=== PATIENT | female | born 1945 | race Caucasian/White ===

== ENCOUNTER → 2017-02-14 12:40 | Outpatient (CLI) | payer MEDICARE, OTHER ==
[2014-05-24 07:04] VITALS: BMI 22.0
[~2017-02-14 12:40] MED LIST: ASPIRIN325 MG PO; CATAPRES0.2 MG PO; GARLIC1 CAP PO; GLUCOSAMINE & C1 CAP PO; HYDROCHLOROTH12.5 M1 PO; MOBIC7.5 MG PO; NORCO 10/325 TA1 TA1 PO; PLAVIX75 MG PO; VITAMIN B-121000 MC3 PO; VITAMIN C1000 MG PO; VITAMIN D2000 UNIT PO; VITAMIN D31000 UNIT PO
== END | disposition home or self-care (01) ==
LOC: D.US 12:40
DX: I65.23 Occlusion and stenosis of bilateral carotid arteries (principal)

== ENCOUNTER → 2017-02-25 14:30 | Outpatient (CLI) | payer MEDICARE, OTHER ==
[2014-05-24 07:04] VITALS: BMI 22.0
== END | disposition home or self-care (01) ==
LOC: D.CT 14:30
DX: I65.23 Occlusion and stenosis of bilateral carotid arteries (principal)

== ENCOUNTER → 2017-07-15 09:57 | Outpatient (CLI) | payer MEDICARE, OTHER ==
[2014-05-24 07:04] VITALS: BMI 22.0
== END | disposition home or self-care (01) ==
LOC: D.CT 09:57
DX: I65.23 Occlusion and stenosis of bilateral carotid arteries (principal)

== ENCOUNTER → 2017-07-20 16:35 | Outpatient (CLI) | payer MEDICARE, OTHER ==
[2014-05-24 07:04] VITALS: BMI 22.0
== END | disposition home or self-care (01) ==
LOC: D.MAMMO 14:00
DX: N63 Unspecified lump in breast (principal)

== ENCOUNTER 2017-08-05 07:01 | Inpatient (IN) | payer MEDICARE, OTHER ==
--- NOTE | 2017-07-30 12:51 | HP ---
PATIENT: STEPHANIE OCASOI MEDICAL RECORD: [id number] ACCOUNT: [id number] LOCATION:[facility] : 47 ADMISSION DATE: 08/05/17 HISTORY AND PHYSICAL EXAMINATION NameSTEPHANIE OCASIO (71yo, F) ID# [id number]. Date/Time07/28/2017 01:[id number] 1945Servic Dept.[facility] ClinicProviderEDJENI CHAPA MDInsuranceMed Primary: [place]) Insurance # : [id number] Referring Provider Name : FARIHA JESUS Med Secondary: [place] () Insurance # : [id number] Med : FOR LIFE ( - MEDICARE SUPPLEMENT) Insurance # : [id number] Prescription: ESI1 - Member is eligible. Chief Complaint Carotid stenosis Followup: Intracranial aneurysm Followup: Carotid artery occlusion S/P RCEA 06/30/11 S/P L SUBCLAVIAN STENT W IR, FOLLOWING 4 MONTH F/U, DISCUSS FINDINGS CTA CAROTID DONE 07/15/17 Patient's Care Team Referring Provider (): FARIHA JESUS: [facility] [phone], , Patient's Pharmacies [facility] ([facility]): [address] [place] [address] [place] [phone], , Vitals BP:144/78 sitting R arm 07/28/2017 01:46 pmBP Cuff Size:adult 07/28/2017 01:46 pmHR:96,REG 07/28/2017 01:48 pmHt:5 ft 2 in 07/28/2017 01:41 pmWt:112 lbs 07/28/2017 01:48 pmNotes:HERE FOR TEST RESULTS. 07/28/2017 01:48 pmBMI:20.5 07/28/2017 01:48 pmAllergies Reviewed Allergies SULFA (SULFONAMIDE ANTIBIOTICS)Medications Reviewed Medications amoxicillin 500 mg-potassium clavulanate 125 mg nofqxd50/22/16 filledMEDCOaspirin 325 mg tablet Take 1 tablet(s) every day by oral route.07/20/11 enteredKat Wilsonazithromycin 250 mg /30/17 filledMEDCObenzonatate 100 mg owmmenn48/22/16 filledMEDCOcephALEXin 500 mg capsule TK ONE C PO TID TAT.10/09/16 filledsurescriptschlorhexidine gluconate 0.12 % mouthwash RINSE DIRECTED FOR 30 SECONDS TWICE DAILY THANK YOU11/24/15 filledsurescriptscloNIDine HCl 0.2 mg tablet Take 1 tablet(s) twice a day by oral route.06/11/17 filledMEDCOclopidogrel 75 mg tablet 1 tablet daily05/27/17 filledMEDCOfamotidine 20 mg oqrnix33/12/17 filledMEDCOFish Oil 1,000 mg capsule two caps by mouth daily07/20/11 enteredKathy WilsonhydroCHLOROthiazide 12.5 mg iabrket12/10/17 filledMEDCOhydroCHLOROthiazide 25 mg tablet Take 1 tablet(s) every day by oral route.11/25/11 [facility] BrownLipitor 80 mg tablet Take 1 tablet(s) every day by oral route in the evening.07/20/11 [facility] Wilsonloratadine 10 mg pcylch89/29/17 filledMEDCOmethylPREDNISolone 4 mg tablets HISTORY AND PHYSICAL [id number] STEPHANIE OCASIO in a dose pack08/19/16 filledMEDCOpantoprazole 40 mg tablet,delayed iwhicwr95/20/17 filledMEDCOProblems Reviewed Problems Hyperlipidemia Essential hypertension Carotid artery occlusion Intracranial aneurysm Arteriosclerotic vascular disease Family History Discussed Family History Mother- Cerebrovascular accident ( age: 72) - previously recorded as StrokeSocial History Discussed Social History Cardiology Smoking Status: Former smoker (Notes: QUIT 2 YRS AGO - SMOKED 1PPD X20YRS) High blood pressure: Y Alcohol intake: Occasional (Notes: 1-2 DAILY) Marital status: Surgical History Reviewed Surgical History Other - 05/24/2014 - Left subclavian stent Carotid Endarterectomy - 06/30/2011 - RCEA MATERIAL EXPEDITOR History (not configured) Obstetric History Obstetric History not reviewed (last reviewed 02/17/2017) Past Medical History Discussed Past Medical History Carotid Stenosis: Y High Blood Pressure: Y Documents for Discussion N/A Screening None recorded. HPI Cerebral Vascular Disease Reported by patient. Associated Symptoms: no headache; no nausea; no vomiting; no tinnitus; no difficulty speaking; no lethargy; no fever; no chills; no palpitations; no syncope; no loss of consciousness progression of carotid artery disease ROS Patient reports muscle aches but reports no muscle w eakness, no arthralgias/joint pain, no back pain, and no swelling in the extremities. She reports no fever, no night sweats, no significant weight gain, no significant weight loss, and no exercise intolerance. She reports no dry eyes, no irritation, and n o vision change. She reports no difficulty hearing and no ear pain. She reports no frequent nosebleeds and no nose/sinus problems. She reports no sore throat, no bleeding gums, no snoring, no dry mouth, no mouth ulcers, no oral abnormalities, and no teeth p roblems. She reports no chest pain, no arm pain on exertion, no shortness of breath when walking, no shortness of breath when lying down, no palpitations, and no known HISTORY AND PHYSICAL [id number] NINFASTEPHANIE K heart murmur. She reports no cough, no wheezing, no shortness of breath, and no coughin g up blood. She reports no abdominal pain, no vomiting, normal appetite, no diarrhea, not vomiting blood, no nausea, and no constipation. She reports no incontinence, no difficulty urinating, no hematuria, and no increased frequency. She reports no abnorma l mole, no jaundice, and no rashes. She reports no loss of consciousness, no weakness, no numbness, no seizures, no dizziness, and no headaches. She reports no depression, no sleep disturbances, feeling safe in relationship, and no alcohol abuse. She repor ts no fatigue. She reports no swollen glands and no bruising. She reports no runny nose, no sinus pressure, no itching, no hives, and no frequent sneezing. ROS as noted in the HPI Physical Exam Patient is a 71-year-old female. Constitutional: General Appearance well nourished and developed and healthy-appearing. Level of Distress NAD. Ambulation ambulating normally. Ears, Nose, Throat: Ears grossly normal hearing. Nose no external nose lesion. Lips, Teeth, and Gums no mouth or lip ulcers. Oropharynx: mois t mucous membranes. Cardiovascular: Apical Impulse not displaced or no thrill. Heart Auscultation normal s1 and s2; no murmurs, rubs, or gallops; and RRR. Arterial Pulses no abdominal aorta bruits, femoral bruits, or popliteal bruits and 2+ bilateral, car otid 2+ bilateral, femoral 2+ bilateral, popliteal 2+ bilateral, and dorsalis pedis 2+ bilateral; BILAT SUBCLAVIAN. Edema no edema or varicosities. Lungs: Repiratory Effort no dyspnea. Percussion no hyperresonance or dullness or flatness. Auscultation no wheezing, rhonchi, or rales / crackles and breathing sounds normal, good air movement, and CTA except as noted. Abdomen: Bowl Sounds normal. Inspection and Palpation no tenderness, guarding, masses, or rebound tenderness and soft and non-distended. Liver non-tender and no hepatomegaly. Spleen non-tender and no splenomegaly. Hernia none palpable. Musculoskeletal System: Gait And Stance normal gait and stance. Digits and Nails normal nails and no cyanosis. Neurologic: Cranial Nerves grossly intact. Reflexes DTRs 2+ bilaterally throughout. Sensation grossly intact. Lymph Nodes: Lymph Nodes no cervical LAD, supraclavicular LAD, axillary LAD, or inguinal LAD. Eyes: Lids and Conjunctivae no discharge or pallor and non-injected. Pupils PERRLA. Cornea grossly intact. EOM EOMI. Lens clear. Sclera non-icteric. Neck: Neck no masses or enlarged lymph nodes and supple, trachea midline, and carotid bruits (soft bilat). Thyroid no enlargement or nodules and non-tender. Skin: Inspection and Palpation no rash, lesions, ulcers, jaundice, or abnormal nevi. Assessment / Plan progression of the left carotid artery disease 1. Intracranial aneurysm I67.1: Cerebral aneurysm, nonruptured HISTORY AND PHYSICAL [id number] STEPHANIE OCASIO 2. Carotid artery occlusion I65.23: Occlusion and stenosis of bilateral carotid arteries 3. Arteriosclerotic vascular disease I70.90: Unspecified atherosclerosis Discussion Notes she has had progression of left carotid artery disease with ruptured plaque on the left. She now has greater than 70% stenosis on the left. I have discussed her dis ease process with her in detail as well as the alternative of treatment. We discussed left carotid endarterectomy including the expected benefits and risks which include bleeding, infection, stroke, , and the imponderables. She understands all of the above and wishes to proceed with planned surgery. CARLOS EDUARDO CHAPA MD at 1251 CC: [id number] DICTATION DATE: 07/28/15 1315 POWDERED SUGAR SUPERVISOR: WILLY 07/29/17 1145 [address] [place] [id number] [place] [address]
[2017-08-04 15:57] LABS: HEMATOCRIT 41.5 % (36.0-48.0); HEMOGLOBIN 14.2 g/dL (12-16); MCH 31.9 pg (26.0-34.0); MCHC 34.2 g/dL (31.0-37.0); MCV 93.3 fL (80.0-100.0); RBC 4.45 10x6/uL (4.00-5.40); RDW 12.4 % (11.5-14.5); WBC 7.1 10x3/uL (4.8-10.8)
[2017-08-04 16:09] LABS: APTT 23.2 SECONDS (22.8-39.4); INR 0.93 (0.85-1.17); PROTIME 12.3 SECONDS (11.6-15.0)
[2017-08-04 16:21] LABS: ALBUMIN 4.1 g/dL (3.4-5.0); ALKALINE PHOSPHATASE 81 U/L (46-116); ALT (SGPT) 21 U/L (10-68); BILIRUBIN - TOTAL 0.72 mg/dL (0.2-1.3); CALC OSMOLALITY 272 mosm/kg (275-300); CARBON DIOXIDE 27.5 mmol/L (21.0-32.0); CHLORIDE - SERUM 97 mmol/L (98-107); CREATININE - SERUM 0.8 mg/dL (0.6-1.3); GLUCOSE 96 mg/dL (74-106); POTASSIUM - SERUM 3.6 mmol/L (3.5-5.1); PROTEIN - SERUM 7.5 g/dL (6.4-8.2); SODIUM 136 mmol/L (136-145); UREA NITROGEN 14 mg/dL (7-18); eGFR NON AFRICAN AMERICAN 75 mL/min (90-120)
[2017-08-04 16:24] LABS: APPEARANCE CLEAR (CLEAR); BILIRUBIN NEGATIVE (NEGATIVE); COLOR YELLOW (YELLOW); GLUCOSE NEGATIVE (NEGATIVE); KETONE NEGATIVE (NEGATIVE); LEUKOCYTE ESTERASE NEGATIVE (NEGATIVE); NITRITE NEGATIVE (NEGATIVE); PROTEIN NEGATIVE (NEGATIVE); SPECIFIC GRAVITY 1.005 (1.005-1.020); UROBILINOGEN NORMAL (NORMAL)
[~2017-08-05] VITALS: Ht 154.9 cm; Wt 53.1 kg
[2017-08-05] VITALS (33 sets, daily range): BP systolic 97–145; BP diastolic 47–81; Ht 154.9 cm; Wt 53.1 kg
[~2017-08-05 07:01] MED LIST changes: +CLARITIN 10 MG10 MG PO; +HCTZ; +PEPCID20 MG PO
--- NOTE | 2017-08-05 10:51 | NUR ---
SKIN TEAR WITH REMOVAL OF IOBAN DRAPE TO LEFT SHOULDER AREA
--- NOTE | 2017-08-05 11:38 | NUR ---
RECEIVED PT TO ROOM CV07 VIA BED OR STAFF AT BEDSIDE. AROUSES TO VOICE. RODRÍGUEZ PITTS REMOVING ALL TAPE POSSIBLE. VSS.
--- NOTE | 2017-08-05 13:33 | NUR ---
SHANA PITTS AT BEDSIDE SPEAKING WITH PT.
--- NOTE | 2017-08-05 15:50 | NUR ---
WATER, CHICKEN BROTH AND LEMON TABLE MOUNTAIN SODA PROVIDED PER REQUEST. PT EXTREMELY THANKFUL STATING "THANK YOU SO VERY MUCH FOR EVERYTHING! I DON'T REMEMBER IT BEING THIS HARD." PT REASSURED. NO CURRENT NEEDS.
--- NOTE | 2017-08-05 18:47 | NUR ---
SHAMPOO CAP PROVIDED. PT ASSISTED WITH COMBING HAIR.
--- NOTE | 2017-08-05 19:15 | NUR ---
SHIFT ASSESSMENT COMPLETE, PATIENT SITTING UP IN BED WATCHING TV. ALERT AND ORIENTED X4. FOLLOWS DIRECTIONS WELL. SMILE EQUAL. BILATERAL HARD ROCK DRILL OPERATOR STRENGTH. INCISION ON LEFT NECK IS CDI. MINIAMAL SWELLING AND BRUISING. AREAS MARKED TO KEEP TRACK. SKIN TEAR ON UPPER LEFT CHEST. DRESSINGS CDI. CATHERINE DRAIN TO UPPER LEFT CHEST. COMPRESSED, MINIMAL BLOODY DRAINAGE NOTED. NO TRACHEAL DEVIATION SEEN. CRACKLES HEARD WITH LUNG SOUNDS, DIMINISHED AT BASES. S1S2, NSR, RITCHIE DRAINING OLIVA COLORED URINE TO GRAVITY, NO KINKS. PERIPHERAL PULSES +2, A-LINE IN R RADIAL WRIST, WAVEFORM GOOD, EXTREMITY WARM AND PINK. WRIST PROTECTOR IN PLACE. DENIES NEED AT THIS TIME, VSS, TITRATING NITRO PER BLOOD PRESSURE PER ORDER. SEE IV DRIPS. WILL MONITOR.
--- NOTE | 2017-08-05 20:15 | NUR ---
CHICKEN BROTH AND FRESH WATER GIVEN PER REQUESTS. PATIENT VERY APPRECIATIVE. VSS, WILL MONITOR.
--- NOTE | 2017-08-05 20:20 | NUR ---
PATIENT REQUESTS MEDS EARLY. STATES SHE IS "WORE OUT AND READY FOR BED" MEDS GIVEN.
--- NOTE | 2017-08-05 21:00 | NUR ---
NO VISITORS AT THIS TIME.
--- NOTE | 2017-08-05 23:00 | NUR ---
REASSESSMENT COMPLETE, NO ACUTE CHANGES. NO TRACHEAL DEVIATION NOTED, SWELLING HAS NOT INCREASED. CATHERINE DRAIN COMPRESSED. A&O X4, SENIOR SOFTWARE SYSTEMS ENGINEER STRENGTH 5/5 AND BILATERAL. WILL MONITOR.
[2017-08-06] VITALS (82 sets, daily range): BP systolic 113–146; BP diastolic 47–83
--- NOTE | 2017-08-06 01:00 | NUR ---
PATIENT RESTING WELL. DENIES NEED AT THIS TIME. A&O X4, NO DEVIATIONS NOTED. NO INCREASED SWELLING TO NECK. CATHERINE DRAIN COMPRESSED. WILL MONITOR.
--- NOTE | 2017-08-06 03:00 | NUR ---
REASSESSMENT COMPLETE, NO ACUTE CHANGES, NEUROLOGICALLY INTACT, NO INCREASE OF SWELLING OF NECK. VSS. WILL MONITOR.
--- NOTE | 2017-08-06 05:00 | NUR ---
TITRATING DRIPS FOR DESIRED BP PER ORDER. SEE IV DRIPS.
--- NOTE | 2017-08-06 07:00 | NUR ---
ASSESSMENT COMPLETE PER FLOW SHEET.. SITTING UP IN BED, VITAL SIGNS STABLE. NO C/O PAIN AT THIS TIME.
--- NOTE | 2017-08-06 09:05 | NUR ---
AM MEDICATIONS GIVEN PER MAR WITHOUT PROBLEM. STATES PAIN IS 2/10 AND REQUESTED TRAMADOL. SEE MAR.
--- NOTE | 2017-08-06 10:50 | NUR ---
DR. CHAPA AT BEDSIDE. CATHERINE DRAIN REMOVED AND DRESSING PLACED TO SITE. REC'D ORDERS TO REMOVE ART LINE AND RITCHIE CATHETER, AND TO SALINE LOCK CVL AFTER GTTS ARE WEANED OFF.
--- NOTE | 2017-08-06 11:25 | NUR ---
RIGHT RADIAL ART LINE D/C'D WITH CATHETER INTACT, DRESSING TO SITE.
--- NOTE | 2017-08-06 11:55 | OP ---
PATIENT NAME: STEPHANIE OCASIO MEDICAL RECORD: [id number] :47 [facility] ADMISSION DATE:08/05/17 SURGEON: FRANK CHAPA MD DATE OF OPERATION: 08/05/2017 SURGEON: Frank Chapa MD. ANESTHESIA: General endotracheal, Dr. Jefferson. OPERATIONS PERFORMED: 1. Left carotid endarterectomy with patch angioplasty. 2. Repair of skin tear. PREOPERATIVE DIAGNOSIS: Severe left internal carotid artery stenosis. POSTOPERATIVE DIAGNOSIS: Severe left internal carotid artery stenosis. INDICATION FOR OPERATION: Severe left internal carotid artery stenosis. FINDINGS AT OPERATION: Severe left internal carotid artery stenosis. There were no EEG changes with clamping or unclamping of the carotid artery. After the case, the drapes were being removed by the scrub techs and the patient developed a skin tear in the left supraclavicular fossa. ESTIMATED BLOOD LOSS: Less than 100 mL. DESCRIPTION OF PROCEDURE: After informed consent, adequate preoperative medication and evaluation, the patient was brought to the operating room, placed on the table in the supine position. After induction of general anesthesia and application of appropriate monitoring devices, the left neck and chest were prepped and draped in a sterile field utilizing Betadine scrub, alcohol, and Betadine solution. A Betadine-impregnated drape was also used. An oblique incision was made in the skin crease. Dissection was carried down the fascia. Hemostasis was maintained with electrocautery. Facial vein was identified and divided. Utilizing sharp dissection, the common carotid, internal and external carotid arteries were dissected free from surrounding structures, protecting the neurological structures. The patient was given a calculated dose of heparin. After 3 minutes, clamps were applied. After 2 minutes, no EEG changes. The arteriotomy was made and extended with Austin scissors. Artery underwent endarterectomy sharply. Artery underwent extensive debridement and irrigation. Utilizing a CorMatrix vascular patch and running 7-0 Prolene suture, the arteriotomy was closed with a patch angioplasty technique. All maneuvers to remove trapped air were performed. The clamps were removed sequentially. There were no EEG changes. The patient was given a calculated dose of protamine to reverse the heparin. Hemostasis was achieved. The wound was irrigated with copious amounts of antibiotic solution and normal saline. A #7 Berhane-Rihc drain was left in the depth of wound and brought through the base of the neck. Neck was again irrigated. Instrument count and sponge count were correct times 2. Neck was closed in layers utilizing 3-0 Vicryl on the platysma, 5-0 subcuticular Monocryl on the skin. Sterile dressing was applied. I left the room to go to the CV recovery room for postoperative orders, etc.. The scrub techs taking the drape off of the patient, developed a skin tear in the left supraclavicular space and the skin had to be laid back into place and sutured with 4-0 nylon suture. A Xeroform gauze was placed over the area and a fluffy dressing placed over. The Berhane-Rich drain area was then draped in a OPERATIVE REPORT [id number] STEPHANIE OCASIO separate field. The patient tolerated the procedure well and was transferred to the CV ICU in stable condition. TRANSINT:[id number] Voice Confirmation ID: [id number] DOCUMENT ID: [id number] FRANK CHAPA MD at 1155 CC: [id number] DICTATION DATE: 08/05/17 1125 PLATFORM BEATER: 08/05/17 1338 ADM IN [facility] [address] [place] [address]
--- NOTE | 2017-08-06 13:50 | NUR ---
RITCHIE CATHETER D/C'D PER ORDERS WITH NO PROBLEMS.
--- NOTE | 2017-08-06 14:07 | NUR ---
TASHA WITH P.T. AT BEDSIDE. ASSISTED PT TO MOVE FROM BED TO CHAIR.
--- NOTE | 2017-08-06 17:26 | NUR ---
UP TO RESTROOM TO VOID WITH LITTLE ASSISTANCE. BACK TO CHAIR.
--- NOTE | 2017-08-06 19:05 | NUR ---
SHIFT ASSESSMENT COMPLETE, PATIENT RESTING IN BED, STATES SHE HAS HAD A GOOD DAY, BUT IS WORE OUT NOW. VSS, TITRATING CLEVIPREX FOR BP. A&O X4, WILL CONTINUE TO ASSESS. SEE FLOWSHEET FOR MORE DETAILS.
--- NOTE | 2017-08-06 20:00 | NUR ---
UP TO BATHROOM, GATE STEADY.
--- NOTE | 2017-08-06 20:15 | NUR ---
PATIENT REQUESTED NIGHT MEDS EARLY.
--- NOTE | 2017-08-06 21:30 | NUR ---
UP TO BATHROOM, STEADY GATE. RETURNED TO BED AND PLACED ON MONITOR.
--- NOTE | 2017-08-06 22:45 | NUR ---
UP TO BATHROOM WITH ASSISST. STEADY GATE.
--- NOTE | 2017-08-06 23:00 | NUR ---
REASSESSMENT COMPLETE, NO ACUTE CHANGES. PATIENT REACHED 1000 ON IS, VSS. WILL KENRICK.
[2017-08-07] VITALS (58 sets, daily range): BP systolic 99–169; BP diastolic 56–96
--- NOTE | 2017-08-07 00:15 | NUR ---
PATIENT TO TO BATHROOM, VOIDED CLEAR YELLOW URINE. BACK TO BED WITH ASSISST. TOLERATED WELL.
--- NOTE | 2017-08-07 01:15 | NUR ---
UP TO BATHROOM WITH ASSISST. STEADY GATE.
--- NOTE | 2017-08-07 02:34 | NUR ---
SUPERVISOR HOUSECLEANER LIGHT TO GO TO BATHROOM. UP WITH MINIMAL ASSISST. STEADY GATE.
--- NOTE | 2017-08-07 03:00 | NUR ---
REASSESSMENT COMPLETE, NO ACUTE CHANGES. A&OX4, VSS, DENIES NEED.
--- NOTE | 2017-08-07 04:40 | NUR ---
UP TO BEDSIDE COMMODE, GATE STEADY. TOLERATED WELL.
--- NOTE | 2017-08-07 05:45 | NUR ---
RESTING WELL, VSS. WILL MONITOR.
--- NOTE | 2017-08-07 16:34 | NUR ---
CLEVIPREX RESTARTED FOR BP 171/102. TITRATED UP TO 5 MG/MIN. PATIENT STATES SHE DID SLEEP WELL LAST NIGHT. TURNED LIGHTS OFF AND ALLOWED HER TO REST THIS AM. STATES SHE BECOMES NAUSED EASILY. ZOFRAN GIVEN PRIOR TO MIRALAX PATEINT STATES IT HELPED ALOT. COMPLETED BED BATH GIVEN, HAIR WASHED. LINEN CHANGED. UP TO BATHROOM 7 X SO FAR. NO BM TODAY. RIGHT SUBCLAVIAN DOUBLE LUMEN FLUSHES WITHOUT DIFFICULTY. OLD DARK RED DRAINAGE NOTED AROUND SITE. DRESSING LEFT NECK AND SHOULDER INTACT WITH ONLY OLD DARK RED DRAINAGE. HAND COINING PRESS OPERATOR EQUAL BILATERALLY. DR. CHAPA DOES NOT WANT THE CLEVIPREX TURNED BACK ON. DC'D . BOTH PORTS OF CENTRAL LINE FLUSHED. GAIT IMPROVING. AMBULATED IN BABIN WITH PT TWICE. WINE SERVED WITH SUPER DENIES PAIN
--- NOTE | 2017-08-07 19:30 | NUR ---
REPORT RECIEVED. ASSESSMENT COMPLETED. SEE FLOW SHEET FOR FURTHER DETAILS. PT STATED SHE HAD A GREAT DAY. POSITIONED FOR COMFORT WILL CONTINUE TO MONITOR.
--- NOTE | 2017-08-07 21:00 | NUR ---
NO VISITORS AT THIS TIME. PT STATES SHES READY TO GO TO BED. ASSISTED HER TO THE RESTROOM, AND TO BRUSHED HER TEETH THEN BACK TO BED. POSITIONED FOR COMFORT, WILL CONTINUE TO MONITOR.
--- NOTE | 2017-08-07 23:00 | NUR ---
REASSESSMENT COMPLETED. NO ACUTE CHANGES AT THIS TIME. POSITIONED PT FOR COMFORT, WILL CONTINUE TO MONITOR.
[2017-08-08] VITALS (24 sets, daily range): BP systolic 106–172; BP diastolic 58–90
--- NOTE | 2017-08-08 01:00 | NUR ---
PT SLEEPING WITH EYES CLOSED.VVS. WILL CONTINUE TO MONITOR.
--- NOTE | 2017-08-08 02:26 | NUR ---
PT HR WENT TO 48 WENT AND WOKE HER UP AND IT CAME BACK TO 62. ASSISITED PT TO THE REST ROOM AND BACK TO BED.
--- NOTE | 2017-08-08 03:00 | NUR ---
REASSESSMENT COMPLETED. NO CHANGES AT THIS TIME. POSITIONED FOR COMFORT WILL CONTINUE MONITOR.
--- NOTE | 2017-08-08 05:32 | NUR ---
PT AWAKE. ASSISTED TO THE RESTROOM AND BACK TO BED. PT REQUESTED A CUP OF COFFEE AND A CUP OF ICE.
--- NOTE | 2017-08-08 07:30 | NUR ---
RECEIVED PT FOR CARE. PT RESTING IN BED WITH EYES OPEN. CALL LIGHT WITHIN REACH.
--- NOTE | 2017-08-08 07:55 | NUR ---
PT UP TO CHAIR WITHOUT ASSISTANCE. CALL LIGHT WITHIN REACH. SET UP WITH BREAKFAST TRAY.
--- NOTE | 2017-08-08 08:30 | NUR ---
DR. CHAPA AT BEDSIDE. CHANGED DRESSING TO LEFT UPPER CHEST SKIN GRAFT.
--- NOTE | 2017-08-08 09:14 | NUR ---
PHYSICAL THERAPY AT BEDSIDE. PT AMBULATED 250FT. TOLERATED WELL.
--- NOTE | 2017-08-08 10:14 | NUR ---
* Is the patient Alert and Oriented? Yes 0 * How many steps to enter\exit or inside your home? 0 0 * PCP Dr. Gamez 0 * Pharmacy [facility] on [address] 0 * Preadmission Environment Home Alone 0 * ADLs Independent 0 * List name and contact numbers for known caregivers / representatives who currently or will assist patient after discharge: Daughter - [place] [phone] Ex - Ronak [phone] 0 * Additional services required to return to the preadmission environment? No 0 * Can the patient safely return to the preadmission environment? Yes 0 * Has this patient been hospitalized within the prior 30 days at any hospital? No Patient Name: STEPHANIE OCASIO Admission Status: Elective Accout number: [id number] Admission Date: 08-05-2017 : 1945 Admission Diagnosis:OCCLUSION AND STENOSIS OF BILATERAL CAROTID ARTERIES Attending: CARLOS EDUARDO CHAPA Current LOS: 3 Anticipated DC Date: 08-09-2017 Planned Disposition: Home Primary Insurance: MEDICARE A & B Discharge Planning Comments: CM met with patient to assess dc plans/needs. Patient states she lives alone and is independent with all ADL's & IADL's. She denies using any assistive devices for mobility or having home health services. At discharge, she will return home. She states she has hired someone to stay with her a couple of days, and that her daughter and ex will be available to help as well. No needs identified or verbalized at this time. CM will follow & assist as needed. Line Ordering Clinician: Lissett Villagomez
--- NOTE | 2017-08-08 12:45 | NUR ---
PT RESTING IN BED WITH EYES CLOSED. RESP EQUAL AND UNLABORED. CALL LIGHT WITHIN REACH.
--- NOTE | 2017-08-08 14:00 | NUR ---
PT HAS VISITORS AT BEDSIDE.
--- NOTE | 2017-08-08 17:30 | NUR ---
PT HAD COMPLETE BATH AND LINEN CHANGE. TOLERATED WELL. VSS AT THIS TIME. ASSISTED BACK TO BED. CALL LIGHT WITHIN REACH.
--- NOTE | 2017-08-08 19:00 | NUR ---
REPORT RECEIVED AND ASSESSMENT COMPLETED. PT IS POST OP CAROTID FROM DR CHAPA. AT THIS TIME VSS. ONE DRESSING ON UPPER LEFT CHEST IN PLACE OVER SKIN TEAR. HEART SOUNDS ARE WNL TO AUSCULTATION. NSR IN THE MID 70'S. WILL CONTINUE TO MONITOR THROUGHOUT SHIFT
--- NOTE | 2017-08-08 21:00 | NUR ---
PT B/P ELEVATED AT THIS TIME. WILL PT DOES NOT HAVE PRN B/P MEDICATION ORDERS AT THIS TIME. CUFF REPOSITIONED B/P STILL ELEVATED. WILL CONTACT PHYSICIAN SHOULD B/P TREND. WILL MONITOR.
--- NOTE | 2017-08-08 23:00 | NUR ---
REASSESSMENT COMPLETED. SEE FLOWSHEET FOR FULL DETAILS. MD CONTACTED REGARDING B/P NEW ORDERS RECEIVED FOR NITRO PATCH 0.4 GRIEF COUNSELLOR CONTACTED FOR OVERRIDE FROM [facility]. WILL ADMINISTER WHEN AVAILABLE.
[2017-08-09] VITALS (10 sets, daily range): BP systolic 107–145; BP diastolic 59–75
--- NOTE | 2017-08-09 01:00 | NUR ---
[facility]. B/P STABLE AT THIS TIME. CURRENTLY 117/59. WILL CONTINUE TO MONITOR CLOSELY
--- NOTE | 2017-08-09 03:00 | NUR ---
REASSESSMENT COMPLETED. SEE FLOWSHEET FOR FULL DETAILS. NO OTHER CHANGES IN STATUS AT THIS TIME. PT SLEEPING IN ROOM BED IN LOW POSITION AND CALL LIGHT IN REACH. WILL CONTINUE TO MONITOR FOR CHANGES THROUGHOUT THE SHIFT.
--- NOTE | 2017-08-09 05:00 | NUR ---
NO CHANGES IN STATUS AT THIS TIME. VSS. I&O COLLECTED. AND DAILY WEIGHT TAKEN. WILL MONITOR.
--- NOTE | 2017-08-09 07:15 | NUR ---
RECEIVED PT FOR CARE. PT SITTING UP IN BED. EYES OPEN. CALL LIGHT WITHIN REACH. ASSESSMENT COMPLETED. VSS AT THIS TIME.
[2017-08-09] MEDS ORDERED: ASPIRIN81 MG PO (09:39)
[2017-08-09] MEDS ORDERED: IBUPROFEN400 MG PO (09:39)
--- NOTE | 2017-08-09 11:03 | NUR ---
RIGHT DLSC D/C'D WITH CATH TIP INTACT. PT TOLERATED WELL.
--- NOTE | 2017-08-09 11:21 | NUR ---
DISCUSSED DISCHARGE INSTRUCTIONS WITH PT. SHE VOICED UNDERSTANDING. ALL DISCHARGE PAPERWORK IN HAND. NO S/S OF DISTRESS NOTED. PT AMBULATED TO VEHICLE. REFUSED WHEELCHAIR. STEADY GAIT NOTED. PT HAS BOTH HEARING AIDS, GLASSES, AND REPORTS SHE HAS ALL OTHER BELONGINGS WITH HER AT THIS TIME.
== END 2017-08-09 11:21 | disposition home or self-care (01) | DRG 39 ==
LOC: D.CVICU 07:01 → D.SDCHOLD 07:01 → D.CVICU 09:42
PROVIDERS: ADMIT Internal Medicine Cardiovascular Disease
PROC: 0HQ4XZZ Repair Neck Skin, External Approach (ICD-10-PCS; 2017-08-05)
PROC: 03UL0JZ Supplement Left Internal Carotid Artery with Synthetic Substitute, Open Approach (ICD-10-PCS; 2017-08-05)
PROC: 03CL0ZZ Extirpation of Matter from Left Internal Carotid Artery, Open Approach (ICD-10-PCS; principal; 2017-08-05 07:30)
DX: I65.23 Occlusion and stenosis of bilateral carotid arteries (principal); I67.1 Cerebral aneurysm, nonruptured; I70.90 Unspecified atherosclerosis; I10 Essential (primary) hypertension; E78.5 Hyperlipidemia, unspecified; S11.81XA Laceration without foreign body of other specified part of neck, initial encounter; Y84.8 Other medical procedures as the cause of abnormal reaction of the patient, or of later complication, without mention of misadventure at the time of the procedure; Y92.234 Operating room of hospital as the place of occurrence of the external cause; G47.8 Other sleep disorders; T39.315A Adverse effect of propionic acid derivatives, initial encounter; T40.4X5A Adverse effect of other synthetic narcotics, initial encounter; Y92.230 Patient room in hospital as the place of occurrence of the external cause

== ENCOUNTER → 2019-04-18 07:57 | Outpatient (CLI) | payer MEDICARE, OTHER ==
[2017-08-05 12:25] VITALS: BMI 23.5
[~2019-04-18 07:57] MED LIST changes: +ASPIRIN81 MG PO; +IBUPROFEN400 MG PO
== END | disposition home or self-care (01) ==
LOC: D.MRI 07:57
PROVIDERS: ATTEND Family Medicine
DX: M54.5 Low back pain (principal)

== ENCOUNTER → 2019-06-04 14:33 | Outpatient (CLI) | payer MEDICARE, OTHER ==
[2017-08-05 12:25] VITALS: BMI 23.5
== END | disposition home or self-care (01) ==
LOC: D.LAB 14:33
PROVIDERS: ATTEND Internal Medicine Hematology & Oncology
DX: E87.5 Hyperkalemia (principal)

== ENCOUNTER → 2019-06-15 10:51 | Outpatient (CLI) | payer MEDICARE, OTHER ==
[2017-08-05 12:25] VITALS: BMI 23.5
== END | disposition home or self-care (01) ==
LOC: D.US 06-13 13:00
PROVIDERS: ATTEND Internal Medicine Cardiovascular Disease
DX: I65.23 Occlusion and stenosis of bilateral carotid arteries (principal)

== ENCOUNTER → 2019-10-19 08:46 | Outpatient (CLI) | payer MEDICARE, OTHER ==
[2017-08-05 12:25] VITALS: BMI 23.5
== END | disposition home or self-care (01) ==
LOC: D.MRI 08:30
PROVIDERS: ATTEND Neurological Surgery
DX: I67.1 Cerebral aneurysm, nonruptured (principal)

== ENCOUNTER 2020-02-10 12:28 | Emergency (ER) | payer MEDICARE, OTHER ==
[~2020-02-10] VITALS: Ht 154.9 cm; Wt 49.1 kg
[2020-02-10 12:35] VITALS: Ht 154.9 cm; Wt 49.1 kg
[2020-02-10] MEDS ORDERED: EDARBYCLOR 40-1 EACH PO ×2 (12:36→12:44)
[2020-02-10] MEDS ORDERED: FERROUS SULFAT325 MG PO (13:12)
[2020-02-10 13:13] LABS: BASOPHILS 0.3 % (0-2); EOSINOPHILS 0.9 % (0-7); HEMATOCRIT 38.6 % (36.0-48.0); HEMOGLOBIN 13.3 g/dL (12-16); IMMATURE GRANULOCYTES 0.3 % (0-5); LYMPHOCYTES 20.3 % (15-50); MCH 31.8 pg (26.0-34.0); MCHC 34.5 g/dL (31.0-37.0); MCV 92.3 fL (80.0-100.0); MEAN PLATELET VOLUME 8.2 fL (7.4-10.4); MONOCYTES 6.8 % (2-11); NEUTROPHILS 71.4 % (40-80); PLATELET COUNT 296 10x3/uL (130-400); RBC 4.18 10x6/uL (4.00-5.40); RDW 12.1 % (11.5-14.5); WBC 7.5 10x3/uL (4.8-10.8)
[2020-02-10] MEDS ORDERED: VITAMIN C500 M1 PO (13:13)
[2020-02-10] MEDS ORDERED: CALCIUM 600 +1 EAC3 PO (13:14)
[2020-02-10] MEDS ORDERED: GLUCOSAMINE HC500 MG PO (13:14)
[2020-02-10] MEDS ORDERED: VITAMIN D10000 UNI1 PO (13:15)
[2020-02-10 13:16] LABS: ANION GAP 10.4 mmol/L (8-16); CALCIUM 9.5 mg/dL (8.5-10.1); CARBON DIOXIDE 28.5 mmol/L (21.0-32.0); CREATININE - SERUM 0.8 mg/dL (0.6-1.3); POTASSIUM - SERUM 3.9 mmol/L (3.5-5.1)
[2020-02-10 13:18] LABS: INR 0.9 (0.85-1.17); PROTIME 12.1 SECONDS (11.6-15.0)
[2020-02-10 13:23] LABS: ALBUMIN 3.9 g/dL (3.4-5.0); BILIRUBIN - TOTAL 0.6 mg/dL (0.2-1.3); PROTEIN - SERUM 7.4 g/dL (6.4-8.2)
[2020-02-10 13:43] LABS: GLUCOSE 1000 mg/dL (NEGATIVE); KETONE MODERATE mg/dL (NEGATIVE); NITRITE NEGATIVE (NEGATIVE); SPECIFIC GRAVITY 1.025 (1.005-1.020)
[2020-02-10 13:44] LABS: BILIRUBIN NEGATIVE (NEGATIVE); UROBILINOGEN NORMAL (NORMAL)
[2020-02-10 13:45] LABS: BACTERIA FEW /hpf (NEGATIVE); EPITHELIAL CELLS 0-5 /hpf (0-5); RED CELLS - URINE 0-5 /hpf (0-5); WHITE CELLS - URINE 0-5 /hpf (NEGATIVE)
[2020-02-10 13:46] LABS: HYALINE CAST 0-5 /lpf (NONE SEEN)
[2020-02-10 15:21] LABS: CALCIUM 9.1 mg/dL (8.5-10.1); CREATININE - SERUM 0.8 mg/dL (0.6-1.3)
[2020-02-10] MEDS ORDERED: FLAGYL500 MG PO (15:32)
[2020-02-10] MEDS ORDERED: LEVAQUIN750 MG PO (15:32)
[2020-02-10] MEDS ORDERED: EDARBI40 MG PO (15:33)
[2020-02-10] MEDS ORDERED: FLORASTOR250 MG PO (15:34)
[2020-02-10 16:05] VITALS: BP 141/69
== END 2020-02-10 16:05 | disposition home or self-care (01) ==
LOC: D.ER 12:28
PROVIDERS: Family Medicine
DX: E87.1 Hypo-osmolality and hyponatremia (principal); K52.9 Noninfective gastroenteritis and colitis, unspecified; I10 Essential (primary) hypertension; R06.02 Shortness of breath

== ENCOUNTER → 2020-06-03 13:59 | Outpatient (CLI) | payer MEDICARE, OTHER ==
[2020-02-10 12:35] VITALS: BMI 20.4
[~2020-06-03 13:59] MED LIST changes: +CALCIUM 600 +1 EAC3 PO; +EDARBI40 MG PO; +EDARBYCLOR 40-1 EACH PO; +FERROUS SULFAT325 MG PO; +FLAGYL500 MG PO; +FLORASTOR250 MG PO; +GLUCOSAMINE HC500 MG PO; +LEVAQUIN750 MG PO; +VITAMIN C500 M1 PO; +VITAMIN D10000 UNI1 PO
== END | disposition home or self-care (01) ==
LOC: D.US 06-02 11:00
PROVIDERS: ATTEND Internal Medicine Cardiovascular Disease
DX: I65.23 Occlusion and stenosis of bilateral carotid arteries (principal)

== ENCOUNTER → 2021-04-02 13:11 | Outpatient (CLI) | payer MEDICARE, OTHER ==
[2020-02-10 12:35] VITALS: BMI 20.4
== END | disposition home or self-care (01) ==
LOC: D.MRI 13:11
PROVIDERS: ATTEND Nurse Practitioner Family
DX: S83.207A Unspecified tear of unspecified meniscus, current injury, left knee, initial encounter (principal)